=== PATIENT | female | born 1940 | race Caucasian/White ===

== ENCOUNTER 2019-05-25 05:28 | Inpatient (IN) | payer MEDICARE ==
[~2019-05-25] VITALS: Ht 165.1 cm; Wt 50.9 kg
--- NOTE | ~2019-05-25 | HEMODYNAMI ---
PATIENT:LINDA AHUJA MEDICAL RECORD: [id number] : 36 [id number] ADMISSION DATE: 05/25/19 Generatedon:05/29/201912:15 Patient name: LINDA AHUJA Patient #: [id number] SSN: [id number] : 1940 Date of study: 05/28/2019 Page: Of Hemodynamic Procedure Report Patient Data Patient Demographics Procedure consent was obtained First Name: LINDA Gender: Female Last Name: SEYMOUR : 1940 Patient #: [id number] Age: 79 year(s) Race: SSN: [id number] Additional ID: [id number] Contact details [address]: [address] [place] [address] State: [place] City: [place] Zip code: [address] Past Medical History History of disease Date Diagnosis Comments CHF Allergies: No known allergies Admission Admission Data Admission Date: 05/25/2019 Admission Time: 6:18 Admit Source: Other Room #: [id number] Height (in.): 65 BSA: 1.55 (m2) Height (cm.): 165.1 BMI: 18.64 (kg/m2) Weight (lbs.): 112 Weight (kg.): 50.8 Current Diagnosis Diagnosis Description NSTEMI Lab Results Lab Result Date: 05/28/2019 Lab Result Time: 0:00 Biochemistry Name Units Result Min Max Creatinine mg/dl 1.2 --(---*)-- 0.6 1.3 eGFR ml/min 46 *-(----)-- 90 120 AM CBC Name Units Result Min Max Hematocrit % 34.5 *-(----)-- 42 54 Hemoglobin g/dl 11 *-(----)-- 13.5 17.5 Procedure Procedure Types Cath Procedure Diagnostic Procedure C LH w/Coronaries Sedation Charges Moderate Sedation up to 45 minutes PCI Procedure Coronary Stent Coronary Stent Initial Hemochron ACT Test Procedure Description Procedure Date Procedure Date: 05/28/2019 Procedure Start Time: 13:21 Procedure End Time: 14:07 Procedure Staff Name Function Gilbert Porter RN Nurse Kendall Fletcher MD Performing Physician Amy Garcia RT Scrub Hope Haji RN Shredder Operator Procedure Data Cath Procedure Fluoroscopy Diagnostic fluoroscopy Total fluoroscopy Time: time: 14.8 min 14.8 min Diagnostic fluoroscopy Total fluoroscopy dose: 991 dose: 991 mGy mGy Contrast Material Contrast Material Type Amount (ml) Isovue 300 94 Entry Location Entry Primary Successful Side Size Upsize Upsize Entry Closure Succes sful Closure Location (Fr) 1 (Fr) 2 (Fr) Remarks Device Remarks Femoral Right 5 Fr 6 Fr 6 Fr Exoseal artery Long Short Estimated blood loss: 10 ml Diagnostic catheters Device Type Used For End Catheter Placement MULTIPACK JL 4.0 5Fr Procedure catheter MULTIPACK 3DRC 5Fr Procedure catheter DIAGNOSTIC Pigtail 5Fr Procedure catheter ([id number]) Procedure Complications No complications Procedure Medications Medication Administration Route Dosage Oxygen etCO2 Nasal cannula 2 l/min Lidocaine 2% added to field 20 Heparin Flush Bag added to field 2 bags (1000units/500ml NS) 0.9% NaCl I.V. 100 ml/hr Versed I.V. 1 mg Fentanyl I.V. 50 mcg Versed I.V. 1 mg Heparin Bolus I.V. 4000 units Integrilin (Bolus I.V. 4.5 ml 2mg/ml) Plavix P.O. 600 mg Hemodynamics Rest BSA: 1.55 (m2) HGB: 11 (g/dl) O2 Consumption: Estimated: 145.93 (ml/min) O2 Cons umption indexed: Estimated:94.15 (ml/min/m) Heart Rate: 82 (bpm) Pressure Samples Time Site Value (mmHg) Purpose Heart Use Rate(bpm) 13:28 AO 120/9(50) Snapshot 82 Snapshots Pre Cath Intra NCS Post Cath Vital Signs Time Heart Resp SPO2 etCO2 NIBP (mmHg) Rhythm Pain Sedation Rate (ipm) (%) (mmHg) Status Level (bpm) 13:13:37 83 32 99 11.1 130/66(98) NSR 0 (11) 10(A) , No pain 13:17:49 79 24 99 12.6 116/59(94) NSR 0 (11) 10(A) , No pain 13:21:54 79 20 99 13.4 113/58(93) NSR 0 (11) 9(A) , No pain 13:26:00 77 19 96 13.4 110/56(86) NSR 0 (11) 9(A) , No pain 13:30:08 80 19 95 3.7 108/48(81) NSR 0 (11) 9(A) , No pain 13:34:14 79 21 95 3.7 111/52(77) NSR 0 (11) 9(A) , No pain 13:38:24 80 22 95 7.4 95/45(67) NSR 0 (11) 9(A) , No pain 13:42:27 79 21 95 3.7 97/45(69) NSR 0 (11) 9(A) , No pain 13:46:31 81 22 95 4.4 96/49(77) NSR 0 (11) 9(A) , No pain 13:50:33 81 16 96 11.1 99/56(74) NSR 0 (11) 9(A) , No pain 13:54:36 81 23 95 1.4 110/52(82) NSR 0 (11) 9(A) , No pain 13:58:42 80 21 95 0.7 112/54(87) NSR 0 (11) 9(A) , No pain 14:02:44 82 18 98 19.3 114/66(96) NSR 0 (11) 9(A) , No pain 14:06:46 82 20 99 4.4 125/76(101) NSR 0 (11) 10(A) , No pain Medications Time Medication Route Dose Verified Delivered Reason Notes Effectiveness by by 13:12:38 Oxygen etCO2 2 Vamshi Buffie used for Nasal l/min Abdiel Porter RN procedure cannula 13:12:46 Lidocaine 2% added 20ml Vamshi Vamshi for local to vial Abdiel Meadows MD anesthetic field 13:12:52 Heparin Flush added 2 Vamshi Vamshi used for Bag to bags Abdiel Meadows MD procedure (1000units/500ml field NS) 13:13:01 0.9% NaCl I.V. 100 Vamshi Buffie Per physician ml/hr Abdiel Porter RN 13:18:36 Versed I.V. 1 mg Vamshi Buffie for sedation Abdiel Porter RN 13:18:42 Fentanyl I.V. 50 Vamshi Connieie for sedation mcg Abdiel Porter RN 13:30:48 Versed I.V. 1 mg Vamshi Buffie for sedation Abdiel Porter RN 13:33:54 Heparin Bolus I.V. 4000 Vamshi Connieie for verif ied units Abdiel Porter RN anticoagulation with dr chairez 13:35:02 Integrilin I.V. 4.5 Vamshi Connieie for waste d (Bolus 2mg/ml) ml Abdiel Porter RN antiplatelet 5.5 ml therapy of vial 14:07:26 Plavix P.O. 600 Kendall Gilbert for mg St Davsi Porter RN antiplatelet therapy Procedure Log Time Note 12:28:36 Informed consent obtained and on chart 12:29:20 ACC Patient presents with Non-STEMI CCS Anginal Class 2--Slight limitation of ordinary activity. 12:29:28 Procedure Status Urgent Heart Cath (IP). 12:29:38 Diagnostic Cath Status : Urgent 12:29:52 Gilbert Porter RN sent for patient. Start room use. 12:30:55 Time tracking: Regular hours (M-F 7:00 - 5:00) 12:31:00 Plan of Care:Hemodynamics will remain stable., Cardiac rhythm will remain stable., Comfort level will be maintained., Respiratory function will remain adequate., Patient/ family verbilizes understanding of procedure., Procedure tolerated without complication., Recovers from procedure without complications.. 12:31:27 Full Disclosure recording started 12:31:30 H&P Date Dictated: 05/28/2019 Within 30 days and on chart.. 12:31:45 Patient allergic to No known allergies 12:31:56 Is the patient allergic to Iodine/contrast media? No. 12:31:58 Was the patient premedicated? N/A 12:34:26 Admit Source: Other 12:34:38 Patient Height : 65 inches 12:34:45 Patient Weight : 112 lbs 12:34:48 Current Diagnosis : NSTEMI 12:49:07 Patient diabetic? No. 12:49:14 Patient not . Patient is over age 53. 12:49:58 Lab Result : Hemoglobin 11 g/dl 12:49:58 Lab Result : eGFR AM 46 ml/min 12:49:58 Lab Result : Creatinine 1.2 mg/dl 12:49:59 Lab Result : Hematocrit 34.5 % 12:50:07 Stress Test: no; N/A ? 12:50:12 Risk of Mortality: 9.3 12:50:16 Risk of blood transfusion: 24 12:50:20 Risk of DENA: 15.7 12:50:46 ACCPatient has been prescribed/administered the following anti-anginal medication within the last 2 weeks: None 13:00:05 Patient received from Med II to CCL 1 Alert and oriented. Tansferred to table in Supine position. 13:00:53 Warm blankets applied, and joe hugger turned on for patient comfort. 13:00:54 Correct patient and procedure confirmed by team. 13:00:56 ECG and BP/O2 sat monitors applied to patient. 13:01:20 Unable to provide pre-op teaching due to educational barrier. PT CONFUSED 13:01:26 Family in patients room. 13:01:36 Patient NPO since Midnight. 13:01:43 Is patient on blood thinner?No 13:01:47 ACC The patient was administered the following blood thiners within the last 24 hours: None 13:01:53 If diabetic: On Metformin? No 13:02:06 Previous problem with sedation/anesthesia? No ? 13:02:21 Snore? Yes 13:02:23 Sleep apnea? No 13:02:33 Deviated septum? No 13:02:34 Opens mouth fully? Yes 13:02:36 Sticks out tongue? Yes 13:02:39 Airway obstruction? No ? 13:02:50 Dentures? No ? 13:02:57 Patient pain scale 0/10 ?. 13:03:24 IV patent on arrival in right antecubital with 0.9% NaCl at [facility]. 13:12:26 Vital chart was started 13:12:38 Oxygen 2 l/min etCO2 Nasal cannula was administered by Gilbert Porter RN; used for procedure; Verbal order read back and verified. 13:12:46 Lidocaine 2% 20ml vial added to field was administered by Vamshi Meadows MD; for local anesthetic; Verbal order read back and verified. 13:12:52 Heparin Flush Bag (1000units/500ml NS) 2 bags added to field was administered by Vamshi Meadows MD; used for procedure; Verbal order read back and verified. 13:13:01 0.9% NaCl 100 ml/hr I.V. was administered by Gilbert Porter RN; Per physician; Verbal order read back and verified. 13:13:22 Use device set Femoral Dx 13:14:12 ACIST Syringe (46044) opened to sterile field. 13:14:13 Bag Decanter (2002S) opened to sterile field. 13:14:16 Medline Cath Pack ([id number]) opened to sterile field. 13:14:20 DIAGNOSTIC Multipack 5Fr catheter set ([id number]) opened to sterile field. 13:14:24 ACIST Hand Control (20178) opened to sterile field. 13:14:25 ACIST Manifold (90165) opened to sterile field. 13:14:27 SHEATH 5FR [place] ([id number]) opened to sterile field. 13:14:28 EMERALD Guide Wire (175-636) opened to sterile field. 13:14:50 Pre procedure: right dorsailis pedis pulse 1+ Palpable, but thready & weak; easily obliterated 13:14:56 Right groin area was prepped with chlora-prep and draped in sterile fashion 13:14:58 Sharps counted by scrub and verified by R.N. 13:14:58 Alarms reviewed by R. N. 13:16:15 --------ALL STOP TIME OUT------ 13:16:16 Final Timeout: patient, procedure, and site verified with staff and physician. All members of the team are in agreement. 13:16:20 Right groin site verified by team. 13:16:25 Fire Safety Assessment: A--An alcohol-based skin anteseptic being used preoperatively., C--Open oxygen or nitrous oxide is being used., D--An ESU, laser, or fiber-optic light is being used. 13:16:31 Physical assessment completed. ASA score P 3 - A patient with severe systemic disease as per Kendall Fletcher MD. 13:16:36 3a) 45-59 Moderately reduced kidney function. 13:16:40 Maximum allowable contrast dose (3.7 X eGFR X 0.75)128 ml. 13:16:44 Sedation plan: IV Moderate Sedation Medication:Versed, Fentanyl 13:18:36 Versed 1 mg I.V. was administered by Gilbert Porter RN; for sedation; Verbal order read back and verified. 13:18:42 Fentanyl 50 mcg I.V. was administered by Gilbert Porter RN; for sedation; Verbal order read back and verified. 13:20:46 Procedure started. 13:21:42 Local anesthetic to right femoral artery with Lidocaine 2% by Kendall Fletcher MD.INITIAL ACCESS ONLY 13:22:19 A 5 Fr sheath was inserted into the Right Femoral artery 13:22:31 A MULTIPACK JL 4.0 5Fr catheter was advanced over the wire and used for Procedure. 13:23:35 LCA angiography performed. 13:24:33 Catheter exchanged over wire. 13:24:48 A MULTIPACK 3DRC 5Fr catheter was advanced over the wire and used for Procedure. 13:25:29 J WIRE EXCHANGED FOR GLIDEWIRE 13:25:34 RCA angiography performed. 13:25:36 ACCDominant side:Right 13:25:55 Catheter exchanged over wire. 13:28:11 GLIDE WIRE ANGLE 260cm (RN4319) opened to sterile field. 13:28:14 INFLATOR Merit BasixCompak (HZ9261) opened to sterile field. 13:28:15 SHEATH 6FR [place] (ZBF956) opened to sterile field. 13:28:16 WHISPER 300cm guide wire ([id number]) opened to sterile field. 13:28:17 GUIDE 6FR HS I catheter (LA6HSI) opened to sterile field. 13:28:54 A DIAGNOSTIC Pigtail 5Fr catheter (183108H) was advanced over the wire and used for Procedure. 13:29:27 LV gram done using DEVINE 13:29:33 EF : 55 % 13:29:34 LV hemodynamics recorded. 13:29:38 Injector settings: Ml/sec: 5, Volume: 15, 13:29:40 Catheter removed. 13:29:45 Proceeding to intervention. 13:30:09 Pre PCI Site: [place] mRCA has 90% stenosis. 13:30:30 Sheath upsized to a 6 Fr Long. 13:30:41 SHEATH 6FR [place] (RSR01) opened to sterile field. 13:30:48 Versed 1 mg I.V. was administered by Gilbert Porter RN; for sedation; Verbal order read back and verified. 13:31:14 ACC Pre-intervention SHYAM Flow is 3. 13:31:57 6 Fr HSI guide catheter was inserted over the wire 13:33:06 WHISPER 300CM wire advanced. 13:33:42 Wire advanced across lesion. 13:33:54 Heparin Bolus 4000 units I.V. was administered by Gilbert Porter RN; for anticoagulation; verified with dr chairez Verbal order read back and verified. 13:35:02 Integrilin (Bolus 2mg/ml) 4.5 ml I.V. was administered by Gilbert Porter RN; for antiplatelet therapy; wasted 5.5 ml of vial Verbal order read back and verified. 13:40:10 The INTEGRITY RX 3.5 x 15 stent ([id number]) was advanced then removed because of failure to cross lesion 13:40:19 Stent catheter was removed intact over wire. 13:40:46 Wire removed. 13:43:01 Wire advanced across lesion. 13:43:30 Wire removed. 13:43:39 CHOICE PT Extra Support J 300cm guide wire ([id number]) opened to sterile field. 13:44:20 CHOICE PT ES 300CM wire advanced. 13:45:06 Wire advanced across lesion. 13:45:32 Inflate balloon Inflation number: 1 A EMERGE OTW 3.0 x 12 balloon ([id number]) was prepped and advanced across the Mid RCA1 , then inflated to 10 DAYDAY for 0:15 (min:sec) . 13:46:16 Inflation number: 2 The EMERGE OTW 3.0 x 12 balloon ([id number]) was reinflated across the Mid RCA1 , to 12 DAYDAY for 0:15 (min:sec) . 13:46:37 Balloon removed over the wire. 13:49:42 Inflate balloon Inflation number: 1 A EMERGE OTW 3.0 x 15 balloon ([id number]) was prepped and advanced across the Mid RCA , then inflated to 12 DAYDAY for 0:15 (min:sec) . 13:50:16 Inflation number: 2 The EMERGE OTW 3.0 x 15 balloon ([id number]) was reinflated across the Mid RCA , to 14 DAYDAY for 0:14 (min:sec) . 13:50:40 Inflation number: 3 The EMERGE OTW 3.0 x 15 balloon ([id number]) was reinflated across the Mid RCA , to 14 DAYDAY for 0:14 (min:sec) . 13:50:55 Balloon removed over the wire. 13:54:05 WHISPER 300 CM wire advanced. 13:54:20 WHISPER WIRE ADVANCED TO USE FOR RICARDO WIRE 13:56:30 WHISPER WIRE REMOVED 13:57:31 Inflation number: 4 The stent balloon was then re-inflated across the Mid RCA to 14 DAYDAY for 0:14 (min:sec) . 13:57:50 Stent catheter was removed intact over wire. 13:57:51 Wire removed. 13:57:53 Guide catheter removed. 13:59:28 Sheath upsized to a 6 Fr Short. 13:59:55 Sheath removed intact; hemostasis achieved with Exoseal to the Right Femoral artery. 14:00:14 Procedure ended.(Physican Out) 14:02:11 Fluoroscopy time 14.80 minutes. 14:02:15 Fluoroscopy dose: 991 mGy 14:02:15 Flurop Dose total: 991 14:02:18 Dose Area Product 57785 mGy/cm. 14:02:24 Contrast amount:Isovue 300 94ml. 14:02:27 Maximum allowable dose exceeded? No. 14:02:31 Sharps counted by scrub and verified by R.N. 14:02:34 Insertion/operative site no bleeding no hematoma. 14:02:38 Post-op/insertion site Right Femoral artery dressed using a 4 x 4 and Tegaderm. 14:02:43 Post right femoral artery:stable, soft, clean and dry 14:02:53 Post Procedure Pulses reassessed and unchanged 14:02:56 Post procedure: right dorsailis pedis pulse 1+ Palpable, but thready & weak; easily obliterated. 14:03:01 Post-procedure physical assessment completed. ASA score P 2 - A patient with mild systemic disease as per Kendall Fletcher MD. 14:03:07 Post procedure rhythm: unchanged. 14:03:10 Estimated blood loss: 10 ml 14:03:21 Post procedure instruction explained to patient.Patient verbalizes understanding. 14:03:25 Patient needs reinforcement of post procedure teaching. 14:05:35 Procedure type changed to Cath procedure, Diagnostic procedure, LHC, LHC w/Coronaries, Sedation Charges, Moderate Sedation up to 45 minutes, PCI procedure, Coronary Stent, Coronary Stent Initial, Hemochron ACT Test 14:06:47 Procedure and supply charges have been captured, reviewed, submitted and are correct. 14:06:52 Procedure Complication : No complications 14:06:56 [facility] Findings: MVD- PCI performed (see procedure note) 14:06:58 See physician's report for complete and final results. 14:06:58 Operative report dictated upon procedure completion. 14:07:08 Report given to Pre/Post Procedure Room. 14:07:12 Patient transfered to Pre/Post Procedure Room with Bed. 14:07:19 Full Disclosure recording stopped 14:07:19 Procedure ended. 14:07:26 Plavix 600 mg P.O. was administered by Gilbert Porter RN; for antiplatelet therapy; Verbal order read back and verified. 14:07:41 ACC-PCI Only Patient was given prescriptions, or instructed by Kendall Fletcher MD to start/continue the following medications upon discharge: Plavix 14:07:43 Vital chart was stopped 14:07:47 End room use (Document Last) 14:08:10 ACT drawn and resulted at 232 seconds. (normal therapeutic range 180-240 seconds). 12:14:24 LATE ENTRY: 13:57:31 INTEGRITY RX 3.5X15 STENT DEPLOYED AT 14 DAYDAY TO MID RCA. Intervention Summary Intervention Notes Time ActionType Lesion and Equipment Action# Pressure Duration Attributes Used 13:40:10 Discard INTEGRITY RX Stent 3.5 x 15 stent ([id number]) 13:45:32 Inflate Mid RCA1 EMERGE OTW 1 10 00:15 balloon 3.0 x 12 balloon ([id number]) 13:46:16 Reinflate Mid RCA1 EMERGE OTW 2 12 00:15 balloon 3.0 x 12 balloon ([id number]) 13:49:42 Inflate Mid RCA EMERGE OTW 1 12 00:15 balloon 3.0 x 15 balloon ([id number]) 13:50:16 Reinflate Mid RCA EMERGE OTW 2 14 00:14 balloon 3.0 x 15 balloon ([id number]) 13:50:40 Reinflate Mid RCA EMERGE OTW 3 14 00:14 balloon 3.0 x 15 balloon ([id number]) 13:57:31 Reinflate Mid RCA INTEGRITY RX 4 14 00:14 stent 3.5 x 15 balloon stent ([id number]) Device Usage Item Name Manufacture Quantity Catalog Number Hospital Part Current Min imal Lot# / Charge Number Stock Stock Serial# Code ACIST Acist 1 52431 519549 108937 033666 20 Syringe Medical (86216) Systems Inc Bag Decanter Microtek 1 2001S 654576 39319 420667 5 () Medical Inc. Medline Cath Medline 1 [id number] 172239 48401 686032 5 Pack ([id number]) DIAGNOSTIC Cardinal 1 NM6111 366584 89333 884325 30 Multipack Health 5Fr catheter set (WB8220) ACIST Hand Acist 1 45091 674618 322989 831033 5 Control Medical (08788) Systems Inc ACIST Acist 1 27747 900360 737086 279418 5 Manifold Medical (40932) Systems Inc SHEATH 5FR Terumo 1 CYF159 489030 905728 305109 5 [place] (LDN155) EMERALD Cardinal 1 502-455 855327 670241 340505 5 Guide Wire Health (502-455) MULTIPACK JL Cardinal 1 728409 5 4.0 5Fr Health catheter MULTIPACK Cardinal 1 018805 5 3DRC 5Fr Health catheter GLIDE WIRE Terumo 1 AA5094 315361 696715 466988 5 ANGLE 260cm (YV3965) INFLATOR [facility] 1 JT8632 868545 628706 585351 15 [facility] BasixCompak (MB0398) SHEATH 6FR Terumo 1 SOX933 641263 866321 917905 40 [place] (SQI959) WHISPER Brothers 1 [id number] 103036 802289 502897 5 300cm guide Vascular wire ([id number]) GUIDE 6FR HS Medtronic 1 LA6HSI 113289 64401 256853 1 I catheter (LA6HSI) DIAGNOSTIC Cardinal 1 [id number] 700266 521575 523699 5 Pigtail 5Fr Health catheter (834343V) SHEATH 6FR Terumo 1 RSR01 406919 29248 284187 5 Destination (RSR01) INTEGRITY RX Medtronic 1 [id number] 215637 067923 522493 5 [id number] 3.5 x 15 stent ([id number]) CHOICE PT [place] 1 [id number] 904355 979620 429871 5 Extra Scientific Support J 300cm guide wire ([id number]) EMERGE OTW [place] 1 [id number] 647254 075260 784844 5 [id number] 3.0 x 12 Scientific balloon ([id number]) EMERGE OTW [place] 1 [id number] 825662 151095 336882 5 [id number] 3.0 x 15 Scientific balloon ([id number]) Signature Audit Sentinel Stage Time Signature Unsigned Intra-Procedure 05/28/2019 Hope Haji 2:09:14 PM RN Intra-Procedure 05/28/2019 Kendall Jenkins 2:11:43 PM Davis PAGE Intra-Procedure 05/28/2019 Kendall Mar RN 2:12:06 PM Davis PAGE 05/29/2019 12:13:32 PM Intra-Procedure 05/29/2019 Hope Haji 12:15:00 PM RN Intra-Procedure 05/29/2019 Kendall Jenkins 12:15:20 PM Davis PAGE Signatures Nurse : Gilbert Porter RN Signature : Date : Time : Performing Physician : Signature : Kendall Fletcher MD Date : Time : [place] [address] [place] [address]
[2019-05-25] MEDS ORDERED: ZESTORETIC 20-1 EACH PO (05:38)
[2019-05-25] MEDS ORDERED: TENORMIN100 MG PO (05:38)
[2019-05-25] MEDS ORDERED: NORVASC10 MG PO (05:39)
[2019-05-25] MEDS ORDERED: TAPAZOLE 5 MG TA5 MG PO (05:39)
--- NOTE | 2019-05-25 06:01 | NUR ---
PT AMBULATED TO RESTROOM INDEPENDENTLY.
--- NOTE | 2019-05-25 07:24 | NUR ---
RECIEVED CARE OF PT. DENIES NEEDS AT THIS TIME
[2019-05-25 11:38] VITALS: BP 167/89
[2019-05-25 12:22] VITALS: BP 167/89; Ht 165.1 cm; Wt 50.9 kg
--- NOTE | 2019-05-25 12:28 | NUR ---
ASSESSMENT PER FLOW SHEET. PT IS WITHOUT DISTRESS. ORIENTATION TO ROOM.FALL PREVENTION INITIATED WITH VINCE MAT.DOOR OPEN. MONITOR FOR NEEDS.
[2019-05-25 12:56] VITALS: BP 167/89
[2019-05-25 17:43] VITALS: BP 166/87
--- NOTE | 2019-05-25 18:33 | NUR ---
PT REMAINS WITHOUT DISTRESS.FALL PREVENTION IN PLACE. WITHOUT CHANGE.CONT PLAN OF CARE
--- NOTE | 2019-05-25 18:54 | MORECARE ---
CASE MANAGEMENT DISCHARGE SUMMARY PATIENT: LINDA PERSAUD UNIT: [id number] ADM DATE: 05/25/19 AGE: 79 : 38 SEX: F ROOM/BED: D.2212 AUTHOR: ABHISHEK,DOC PHYSICIAN: REFERRING PHYSICIAN: CARRI HUANG MD DATE OF SERVICE: 05/25/19 Discharge Plan Patient Name: LINDA PERSAUD Facility: [facility]:[place] : 1940 Planned Disposition: Home Anticipated Discharge Date: 05/28/19 Discharge Date: Expected LOS: 3 Initial Reviewer: [email or web address] Initial Review Date: 05/25/2019 Generated: 05/25/19 7:53 pm Comments DCP- Discharge Planning Updated by [email or web address]: Minda Alvarenga on 05/25/19 5:[address] DC PLAN: Return home with her independently. ANTICIPATED DC NEEDS: denied known dc needs at time of assessment in the ER. CM met with patient to complete initial dc planning assessment. CM educated patient on the CM role and verbal consent given by patient to complete assessment. CM verified patient's address, phone number, and emergency contact phone numbers. Patient lives at home with her . She reports she is independent in her care at home. At discharge patient plans to return home independently and feels this is a safe discharge. CM discussed availability of home health, rehab services, and medical equipment. Patient denied known discharge needs at this time. Transportation provider at discharge will be her . CM will continue to follow and will assist as needed with dc plans/needs. Minda Alvarenga RN, [facility] DCPIA - Discharge Planning Initial Assessment Updated by [email or web address]: Minda Alvarenga on 05/25/19 6:50 pm * Is the patient Alert and Oriented? Yes * How many steps to enter\exit or inside your home? one * PCP Dr. Hodges in [place] * Pharmacy [facility] - [place] * Preadmission Environment Home with Family * ADLs Independent * List name and contact numbers for known caregivers / representatives who currently or will assist patient after discharge: Zackary Persaud - spouse - [phone] * Verbal permission to speak to the caregivers and representatives has been obtained from the patient. Yes * Additional services required to return to the preadmission environment? No * Can the patient safely return to the preadmission environment? Yes * Has this patient been hospitalized within the prior 30 days at any hospital? No Patient Name: LINDA PERSAUD Page [id number] at 1854 All edits/amendments must be made on the electronic document DICTATION DATE: 05/25/191852 CONCRETE STONE FINISHER: SIN 05/25/191852 RPT#: [id number] DC DATE: STATUS: ADM IN [facility] [address] [place] [address] END OF REPORT
[2019-05-25 20:00] VITALS: BP 163/85
[2019-05-26 04:00] VITALS: BP 117/81
[2019-05-26 06:31] LABS: BASOPHILS 0.3 % (0-2); EOSINOPHILS 0.1 % (0-7); HEMATOCRIT 38.6 % (36.0-48.0); HEMOGLOBIN 12.2 g/dL (12-16); IMMATURE GRANULOCYTES 0.3 % (0-5); LYMPHOCYTES 28.1 % (15-50); MCH 28.1 pg (26.0-34.0); MCHC 31.6 g/dL (31.0-37.0); MCV 88.9 fL (80.0-100.0); MEAN PLATELET VOLUME 10.9 fL (7.4-10.4); MONOCYTES 7.8 % (2-11); NEUTROPHILS 63.4 % (40-80); PLATELET COUNT 250 10x3/uL (130-400); RBC 4.34 10x6/uL (4.00-5.40); RDW 14.1 % (11.5-14.5); WBC 7.9 10x3/uL (4.8-10.8)
[2019-05-26 07:08] LABS: APTT 22.1 SECONDS (22.8-39.4); INR 1.12 (0.85-1.17); PROTIME 14.4 SECONDS (11.6-15.0)
[2019-05-26 07:11] LABS: ALBUMIN 3.4 g/dL (3.4-5.0); ALKALINE PHOSPHATASE 77 U/L (30-120); ALT (SGPT) 47 U/L (10-68); BILIRUBIN - TOTAL 0.49 mg/dL (0.2-1.3); CALC OSMOLALITY 294 mosm/kg (275-300); CALCIUM 8.8 mg/dL (8.5-10.1); CARBON DIOXIDE 33.6 mmol/L (21.0-32.0); CHLORIDE - SERUM 105 mmol/L (98-107); CKMB 2.2 U/L (0.0-3.6); CREATINE KINASE 108 UL (21-215); CREATININE - SERUM 1.1 mg/dL (0.6-1.3); GLUCOSE 90 mg/dL (74-106); MAGNESIUM - SERUM 1.7 mg/dL (1.8-2.4); PHOSPHOROUS 3.7 mg/dL (2.5-4.9); PRO BNP 25172 pg/mL (0-450); PROTEIN - SERUM 7.1 g/dL (6.4-8.2); SODIUM 144 mmol/L (136-145); UREA NITROGEN 35 mg/dL (7-18); eGFR NON AFRICAN AMERICAN 50 mL/min (90-120)
[2019-05-26 07:15] LABS: TROPONIN-I 0.087 ng/mL (0.000-0.060)
--- NOTE | 2019-05-26 08:11 | NUR ---
AWAKE, ALERT, TALKING TO HER SON'S . ON TELE, SR 88 THIS AM PER MONIOTR TECH. DENIES ANY PAIN OR ANY NEED AT THE PRESENT TIME.
[2019-05-26 08:37] LABS: APPEARANCE CLEAR (CLEAR); BILIRUBIN NEGATIVE (NEGATIVE); COLOR STRAW (YELLOW); GLUCOSE NEGATIVE (NEGATIVE); KETONE NEGATIVE (NEGATIVE); NITRITE NEGATIVE (NEGATIVE); PROTEIN NEGATIVE (NEGATIVE); SPECIFIC GRAVITY 1.005 (1.005-1.020); UROBILINOGEN NORMAL (NORMAL)
[2019-05-26 08:47] VITALS: BP 149/72
[2019-05-26 12:10] VITALS: BP 123/68
[2019-05-26 16:44] VITALS: BP 139/74
[2019-05-26 20:00] VITALS: BP 131/82
[2019-05-27] VITALS: BP 137/70
[2019-05-27 04:00] VITALS: BP 140/80
[2019-05-27 05:32] LABS: BASOPHILS 0.3 % (0-2); EOSINOPHILS 0.9 % (0-7); HEMOGLOBIN 11.5 g/dL (12-16); MCH 27.9 pg (26.0-34.0); MCHC 31.9 g/dL (31.0-37.0); MCV 87.4 fL (80.0-100.0); MEAN PLATELET VOLUME 10.4 fL (7.4-10.4); NEUTROPHILS 60.8 % (40-80); PLATELET COUNT 282 10x3/uL (130-400); RBC 4.12 10x6/uL (4.00-5.40); RDW 14.3 % (11.5-14.5); WBC 6.3 10x3/uL (4.8-10.8)
[2019-05-27 05:43] LABS: ANION GAP 10.4 mmol/L (8-16); CALCIUM 8.7 mg/dL (8.5-10.1); CARBON DIOXIDE 30.7 mmol/L (21.0-32.0); CREATININE - SERUM 1.1 mg/dL (0.6-1.3); MAGNESIUM - SERUM 1.7 mg/dL (1.8-2.4); PHOSPHOROUS 3.6 mg/dL (2.5-4.9); POTASSIUM - SERUM 4.1 mmol/L (3.5-5.1)
[2019-05-27 08:12] VITALS: BP 158/76
--- NOTE | 2019-05-27 08:16 | NUR ---
SHE IS SETTING UP IN BED TALKING WITH HER FAMILY. NO ISSUES, SR ON THE MONITOR.
[2019-05-27 12:02] VITALS: BP 104/44
[2019-05-27 16:19] VITALS: BP 134/69
[2019-05-27 20:00] VITALS: BP 146/65
[2019-05-28] VITALS: BP 115/74
[2019-05-28 04:00] VITALS: BP 126/62
[2019-05-28 04:18] LABS: BASOPHILS 0.3 % (0-2); EOSINOPHILS 0.6 % (0-7); HEMATOCRIT 34.5 % (36.0-48.0); IMMATURE GRANULOCYTES 0.2 % (0-5); LYMPHOCYTES 19.3 % (15-50); MCH 27.7 pg (26.0-34.0); MCHC 31.9 g/dL (31.0-37.0); MCV 86.9 fL (80.0-100.0); MEAN PLATELET VOLUME 9.8 fL (7.4-10.4); NEUTROPHILS 69.6 % (40-80); PLATELET COUNT 273 10x3/uL (130-400); RBC 3.97 10x6/uL (4.00-5.40); RDW 14.3 % (11.5-14.5); WBC 6.5 10x3/uL (4.8-10.8)
[2019-05-28 04:34] LABS: ANION GAP 11.2 mmol/L (8-16); CALCIUM 8.7 mg/dL (8.5-10.1); CARBON DIOXIDE 28.2 mmol/L (21.0-32.0); CREATININE - SERUM 1.2 mg/dL (0.6-1.3); MAGNESIUM - SERUM 1.9 mg/dL (1.8-2.4); PHOSPHOROUS 3.6 mg/dL (2.5-4.9); POTASSIUM - SERUM 4.4 mmol/L (3.5-5.1)
[2019-05-28 08:23] VITALS: BP 123/63
--- NOTE | 2019-05-28 11:22 | NUR ---
HIGH RISK / IMPAIRED SKIN INTEGRITY -TURN/REPOSITION Q 2 HOURS (HOURLY REPOSITIONING IF UP IN CHAIR) -FLOAT HEELS OFF MATTRESS/PILLOWS -DAILY AND NEEDED PERSONAL CARE, USING CALMOSEPTINE CREAM IF REDNESS IS NOTED DUE TO INCONTINENCE/MOISTURE -SKIN ASSESSMENT Q SHIFT -CONSULT WOUND CARE IF NON-BLANCHABLE REDNESS OVER BONY PROMINENCES IS NOTED. COVER AREA WITH MEPILEX FOR PROTECTION AND REPOSITION PATIENT
[2019-05-28 12:18] VITALS: BP 140/63
--- NOTE | 2019-05-28 12:51 | NUR ---
PT OFF FLOOR TO HEART CATH AT THIS TIME VIA BED. WAS INSTABLE CONDITION UPON DEPARTURE. FAMILY REMAIN IN ROOM.
[2019-05-28 14:09] LABS: CHOL - HDL RATIO 3.6 ratio (2.3-4.1); LDL-HDL RATIO 2.2 ratio (1.5-3.5)
--- NOTE | 2019-05-28 14:20 | NUR ---
REC TO ROOM FROM CUSTOMER OPERATIONS INTERN VIA BED. R GROIN TEGADERM AND 4X4 CDI, GROIN SOFT, NO S/S BLEEDING OR HEMATOMA. INSTRUCTED TO KEEP HEAD ON PILLOW AND R LE STRAIGHT AND STILL. HR SR 75, BP 133/58, RESP 20, SAT 99% ON 2LNC
--- NOTE | 2019-05-28 15:15 | NUR ---
R GROIN CDI, SOFT. NO S/S BLEEDING OR HEMATOMA. BP 114/55, NSR 72, RR 21, SAT 97% ON 2LNC
--- NOTE | 2019-05-28 15:30 | NUR ---
R GROIN CDI, SOFT. PPP. NO S/S BLEEDING OR HEMATOMA. BP 124/62, NSR 72. ROUSES TO VERBAL AND TACTILE STIMULUS. DENIES NEEDS.
--- NOTE | 2019-05-28 15:51 | NUR ---
R GROIN SOFT, NO S/S BLEEDING OR HEMATOMA. PPP. BP 132/63, HR NSR 72, SAT 99% ON 2LNC.
--- NOTE | 2019-05-28 16:00 | NUR ---
R GROIN CDI, SOFT. NO S/S BLEEDING OR HEMATOMA. PPP. BP 126/63, NSR 74, RR 18, SAT 100% ON 2LNC.
--- NOTE | 2019-05-28 16:20 | NUR ---
TRANSFERRED BACK TO 2211 AFTER TELEPHONE REPORT GIVEN TO NURSE DELILAH. FAMILY IN ROOM TO RECEIVE PT. R GROIN REMAINS SOFT, CDI, NO S/S BLEEDING OR HEMATOMA. EXPL TO PT, SONS AND IN 30 MIN SHE CAN RAISE HOB AND MOVE RLE SOME. BEDREST TIL 1730. ALL VERBALIZE UNDERSTANDING. CHART LEFT WITH Tony FERNANDEZ NURSE, AT NURSES STATION WITH VERBAL ORDER TO RESUME PREPROCEDURE DIET PER DR MICHELE.
--- NOTE | 2019-05-28 16:38 | EC ---
PATIENT:LINDA AHUJA DATE OF SERVICE: 05/25/19 SEX: F MEDICAL RECORD: [id number] DATE OF : 36 LOCATION:D[facility] AGE OF PATIENT: 79 ADMISSION DATE: 05/25/19 REFERRING PHYSICIAN: INTERPRETING PHYSICIAN: MEHRDAD KO MD ECHOCARDIOGRAM REPORT ECHO CHARGES 4 ECHO COMPLETE Date: 05/25/19 CLINICAL DIAGNOSIS: CHF ECHOCARDIOGRAPHIC MEASUREMENTS (adult normal given) AC root (d.<3.7cm) 2.8 cm LV Septum d (<1.2 cm> 1.0 cm Valve Excursion 1.9 cm LV Septum (systole) 1.2 cm Left Atria (s.<4.0cm> 3.2 cm LVPW d(<1.2cm) 1.2 cm RV (d.<2.3cm) 3.1 cm LVPW (sytole) 1.3 cm LV diastole(<5.6CM) cm MV E-F(>70mm/sec) cm LV systole cm LVOT Diameter 1.5 cm MV exc.(>10mm) cm Est.ejection fraction (50-75%) % DOPPLER: LVIT cm/sec A 90 cm/sec E 56 cm/sec LA cm/sec RVSP 68.6 mmHg LVOT 68 cm/sec AOP1/2T m/s Asc. Ao 96 cm/sec RVOT 50 cm/sec RA cm/sec PA 55 cm/sec AV Gradient Peak 3.7 mmHg AV Mean 2.3 mmHg AV Area 1.1 cm MV Gradient Peak 3.2 mmHg MV Mean 1.7 mmHg MV Area cm COMMENTS: Sheet Writer: Kris [facility] A Class Lineman: 1 Dr. Ko TAPE# PACS Pericardial Effusion N DATE OF SERVICE: Echocardiogram FINDINGS: 1. Left ventricular chamber size is within normal limits. Left ventricular systolic function is normal at 50% to 55%. 2. Left atrium is within normal limits. Right atrium and right ventricle chamber sizes are mildly dilated. 3. Valvular structures have normal structure and motion. ECHOCARDIOGRAM REPORT [id number] LINDA AHUJA 4. Doppler interrogation reveals severe mitral regurgitation, severe tricuspid regurgitation, no other valvular insufficiency or stenosis. Pulmonary systolic pressure is elevated estimated at 70 mmHg. 5. No evidence of pericardial effusion or left ventricular thrombus. TRANSINT:[id number] Voice Confirmation ID: [id number] DOCUMENT ID: [id number] MEHRDAD KO MD at 1638 CC: [id number] DICTATION DATE: 05/25/19 1509 MACHINE SET UP OPERATOR: 05/25/191956 ADM IN [facility] [address] [id number]
--- NOTE | 2019-05-28 19:38 | NUR ---
PT IS RESTING IN BED WITH EYES CLOSED. RESPIRATIONS ARE EVEN AND UNLABORED. PT IS EASILY AROUSED WITH VERBAL STIMULATION. PT IS AAO X 4 UPON AROUSAL. DRESSING TO RIGHT GROIN IN PLACE AND CDI. PT DENIES PRESENCE OF NUMBNESS/TINGLING/DYSPNEA AT THIS TIME. PT DENIES PRESENCE OF PAIN/N/V AT THIS TIME. PIV TO RIGHT FA INFUSING WITHOUT DIFFICULTY. BED IS IN THE LOWEST POSITION CALL LIGT AND BEDSIDE TABLE ARE WITHINR EACH. SIDE RAILS X 2.
[2019-05-28 21:39] VITALS: BP 137/59
--- NOTE | 2019-05-29 00:15 | NUR ---
ASSISTED PT UP TO BATHROOM AND BACK TO BED. BED ALARM ON. DENIES FURTHER NEEDS. WILL CTM
[2019-05-29 01:26] VITALS: BP 119/57
[2019-05-29 05:30] VITALS: BP 122/68
[2019-05-29 05:32] LABS: ANION GAP 12.8 mmol/L (8-16); CARBON DIOXIDE 26.5 mmol/L (21.0-32.0); MAGNESIUM - SERUM 1.7 mg/dL (1.8-2.4); PHOSPHOROUS 3.1 mg/dL (2.5-4.9); POTASSIUM - SERUM 4.3 mmol/L (3.5-5.1)
[2019-05-29 05:46] LABS: BASOPHILS 0.3 % (0-2); EOSINOPHILS 0.6 % (0-7); HEMOGLOBIN 10.1 g/dL (12-16); IMMATURE GRANULOCYTES 0.1 % (0-5); LYMPHOCYTES 17.9 % (15-50); MCH 27.6 pg (26.0-34.0); MCHC 31.6 g/dL (31.0-37.0); MCV 87.4 fL (80.0-100.0); MEAN PLATELET VOLUME 10.1 fL (7.4-10.4); MONOCYTES 8.3 % (2-11); NEUTROPHILS 72.8 % (40-80); PLATELET COUNT 263 10x3/uL (130-400); RBC 3.66 10x6/uL (4.00-5.40); RDW 14.4 % (11.5-14.5)
--- NOTE | 2019-05-29 07:15 | NUR ---
PT SITTING UP IN BED. RESP EVEN AND UNLABORED AT THIS TIME. DENIES PAIN AT THIS TIME. PT REQUEST ASSIST TO BATHROOM. PT AMBULATES WITH STANDBY ASSIST TO BATHROOM AND BACK TO BED. PT GAMALIEL WELL. SALINE LOC TO RIGHT FOREARM. SITE WITHOUT REDNESS OR EDEMA. DRESSING TO RIGHT GROIN C/D/I. DENIES FURTHER NEEDS AT THIS TIME. CL WITHIN REACH. ENCOURAGED TO CALL WITH NEEDS. CONTINUE POC
[2019-05-29 09:28] VITALS: BP 134/65
[2019-05-29] MEDS ORDERED: TAPAZOLE 5 MG TA5 MG PO (11:15)
[2019-05-29] MEDS ORDERED: BAYER CHEWABLE81 MG PO (11:16)
--- NOTE | 2019-05-29 12:26 | MORECARE ---
CASE MANAGEMENT DISCHARGE SUMMARY PATIENT: LINDA PERSAUD UNIT: [id number] ADM DATE: 05/25/19 AGE: 79 : 38 SEX: F ROOM/BED: D.2212 AUTHOR: ABHISHEK,DOC PHYSICIAN: REFERRING PHYSICIAN: CARRI HUANG MD DATE OF SERVICE: 05/29/19 Discharge Plan Patient Name: LINDA PERSAUD Facility: [facility]:[place] : 1940 Planned Disposition: Home Anticipated Discharge Date: 05/28/19 Discharge Date: Expected LOS: 3 Initial Reviewer: [email or web address] Initial Review Date: 05/25/2019 Generated: 05/29/19 1:26 pm Comments DCP- Discharge Planning Updated by [email or web address]: Jane Scott on 05/29/19 11:[address] PATIENT WILL BE DISCHARGING HOME TODAY, IMM SERVED AND EXPLAINED. SHE WILL BE GOING TO HER SON'S HOME WITH HER SPOUSE AND THEN HE WILL BE TAKING THEM BACK TO THEIR HOME TOMORROW. THEY HAVE WORKED OUT A PLAN FOR THEM TO DAY WITH ONE CHILD OR ANOTHER. PATIENT DENIES ANY OTHER NEEDS. IMM SERVED AND EXPLAINED. CM TO FOLLOW AND ASSIST WITH DC PLANNING NEEDED DCP- Discharge Planning Updated by [email or web address]: Minda Alvarenga on 05/25/19 5:[address] DC PLAN: Return home with her independently. ANTICIPATED DC NEEDS: denied known dc needs at time of assessment in the ER. CM met with patient to complete initial dc planning assessment. CM educated patient on the CM role and verbal consent given by patient to complete assessment. CM verified patient's address, phone number, and emergency contact phone numbers. Patient lives at home with her . She reports she is independent in her care at home. At discharge patient plans to return home independently and feels this is a safe discharge. CM discussed availability of home health, rehab services, and medical equipment. Patient denied known discharge needs at this time. Transportation provider at discharge will be her . CM will continue to follow and will assist as needed with dc plans/needs. Minda Alvarenga RN, [facility] DCPIA - Discharge Planning Initial Assessment Updated by [email or web address]: Minda Alvarenga on 05/25/19 6:50 pm * Is the patient Alert and Oriented? Yes * How many steps to enter\exit or inside your home? one * PCP Dr. Hodges in [place] * Pharmacy [facility] - [place] * Preadmission Environment Home with Family * ADLs Independent * List name and contact numbers for known caregivers / representatives who currently or will assist patient after discharge: Zackary Persaud - spouse - [phone] * Verbal permission to speak to the caregivers and representatives has been obtained from the patient. Yes * Additional services required to return to the preadmission environment? No * Can the patient safely return to the preadmission environment? Yes * Has this patient been hospitalized within the prior 30 days at any hospital? No Coverage Notice Reviewer: [email or web address] Mayra Scott Notice Issued Date-Time: 05/29/2019 12:10 Notice Type: IM Discharge Notice Notice Delivered To: Patient Relationship to Patient: Manager Installation Name: Delivery Method: HAND - Hand Delivered Micki Days: Prior Verbal Notification: Recipient Understood Notice: Yes Recipient Signature: Yes Med Rec Note Co-signed by Attending: Coverage Notice Comment: Last DP export: 05/25/19 5:54 p Patient Name: LINDA PERSAUD Page [id number] at 1226 All edits/amendments must be made on the electronic document DICTATION DATE: 05/29/191225 PARAPROFESSIONAL EDUCATION ASSISTANT: SIN 05/29/19 1226 RPT#: [id number] DC DATE: STATUS: ADM IN [facility] [address] [place] [address] END OF REPORT
[2019-05-29 12:45] VITALS: BP 129/62
[2019-05-29] MEDS ORDERED: PLAVIX75 MG PO (12:56)
--- NOTE | 2019-05-29 13:43 | NUR ---
PT PROVIDED DISCHARGE PAPERWORK WITH PRESCRIPTIONS, STENT CARD AND LITERATURE REGARDING POST OP HEART CATH. PT VOICES UNDERSTANDING TO EXERCISE SHOWERING AND DIET INSTRUCTIONS. DISCUSSED FOLLOW UP APPOINTMENTS WITH DR. GRUBER AND DR BERMUDEZ. IV DISCONTINUED FROM RIGHT UPPER ARM CATH INTACT. PRESSURE DRESSING PLACED. PT DENIES ANY CONCERNS OR QUESTIONS AT THIS TIME. PT TAKEN OUT VIA W/C WITH ALL PERSONAL POSESSIONS.
--- NOTE | 2019-05-29 14:27 | MORECARE ---
CASE MANAGEMENT DISCHARGE SUMMARY PATIENT: LINDA PERSAUD UNIT: [id number] ADM DATE: 05/25/19 AGE: 79 : 38 SEX: F ROOM/BED: D.2212 AUTHOR: ABHISHEK,DOC PHYSICIAN: REFERRING PHYSICIAN: CARRI HUANG MD DATE OF SERVICE: 05/29/19 Discharge Plan Patient Name: LINDA PERSAUD Facility: [facility]:[place] : 1940 Planned Disposition: Home Anticipated Discharge Date: 05/28/19 Discharge Date: 05/29/2019 Expected LOS: 3 Initial Reviewer: [email or web address] Initial Review Date: 05/25/2019 Generated: 05/29/19 3:26 pm Comments DCP- Discharge Planning Updated by [email or web address]: Jane Scott on 05/29/19 11:[address] PATIENT WILL BE DISCHARGING HOME TODAY, IMM SERVED AND EXPLAINED. SHE WILL BE GOING TO HER SON'S HOME WITH HER SPOUSE AND THEN HE WILL BE TAKING THEM BACK TO THEIR HOME TOMORROW. THEY HAVE WORKED OUT A PLAN FOR THEM TO DAY WITH ONE CHILD OR ANOTHER. PATIENT DENIES ANY OTHER NEEDS. IMM SERVED AND EXPLAINED. CM TO FOLLOW AND ASSIST WITH DC PLANNING NEEDED DCP- Discharge Planning Updated by [email or web address]: Minda Alvarenga on 05/25/19 5:[address] DC PLAN: Return home with her independently. ANTICIPATED DC NEEDS: denied known dc needs at time of assessment in the ER. CM met with patient to complete initial dc planning assessment. CM educated patient on the CM role and verbal consent given by patient to complete assessment. CM verified patient's address, phone number, and emergency contact phone numbers. Patient lives at home with her . She reports she is independent in her care at home. At discharge patient plans to return home independently and feels this is a safe discharge. CM discussed availability of home health, rehab services, and medical equipment. Patient denied known discharge needs at this time. Transportation provider at discharge will be her . CM will continue to follow and will assist as needed with dc plans/needs. Minda Alvarenga RN, [facility] DCPIA - Discharge Planning Initial Assessment Updated by [id number]: Minda Alvarenga on 05/25/19 6:50 pm * Is the patient Alert and Oriented? Yes * How many steps to enter\exit or inside your home? one * PCP Dr. Hodges in [place] * Pharmacy [facility] - [place] * Preadmission Environment Home with Family * ADLs Independent * List name and contact numbers for known caregivers / representatives who currently or will assist patient after discharge: Zackary Persaud - [facility] - [phone] * Verbal permission to speak to the caregivers and representatives has been obtained from the patient. Yes * Additional services required to return to the preadmission environment? No * Can the patient safely return to the preadmission environment? Yes * Has this patient been hospitalized within the prior 30 days at any hospital? No Coverage Notice Reviewer: [email or web address] Mayra Scott Notice Issued Date-Time: 05/29/2019 12:10 Notice Type: IM Discharge Notice Notice Delivered To: Patient Relationship to Patient: Film Maker Name: Delivery Method: HAND - Hand Delivered Micki Days: Prior Verbal Notification: Recipient Understood Notice: Yes Recipient Signature: Yes Med Rec Note Co-signed by Attending: Coverage Notice Comment: Last DP export: 05/29/19 11:26 a Patient Name: LINDA PERSAUD Page [phone] at 1427 All edits/amendments must be made on the electronic document DICTATION DATE: 05/29/191425 FIBER OPTIC ASSEMBLY WORKER: SIN 05/29/191425 RPT#: [id number] DC DATE:05/29/19 STATUS: DIS IN [facility] [address] [place] [address] END OF REPORT
--- NOTE | 2019-05-29 16:21 | OP ---
PATIENT NAME: LINDA AHUJA MEDICAL RECORD: [id number] :36 LOCATION:D.[facility] ADMISSION DATE:05/25/19 SURGEON: ANGELITA FERGUSON MD DATE OF OPERATION: 05/28/2019 PROCEDURE: Left heart catheterization, selective coronary angiography, right femoral artery approach. CATHETERS: A 5-Zambian sheath, 5/4 left and right Ashutosh, 5/4 pig. The procedure was well tolerated. We proceeded immediately to PTCA stenting of the right coronary. FINDINGS: Left ventriculography in 30-degree DEVINE view: Normal wall motion, normal systolic function. CORONARY ANATOMY: LEFT MAIN: Left main is free of disease. LAD: Had previous stenting is widely patent throughout its course with no evidence of restenosis and no evidence of progression of disease. CIRCUMFLEX: Medium size circumflex free of disease. RIGHT CORONARY ARTERY: Has a mid portion stenosis about 80%. PLAN: Intervention of the right coronary momentarily. DESCRIPTION OF PROCEDURE: A 5-Zambian sheath was exchanged for a long 6-Zambian sheath. A hockey stick guide catheter provided good guide catheter support followed by 300 Whisper wire, the lesion was highly calcified. Therefore, we used a 3.0 x 15 balloon and taken distal to the lesion and using the balloon as an exchange catheter changed out to PT X4 wire. we inflated up and down the lesion up to 14 atmospheres pre-deployment. Stent deployed was a 3.5 x 15 mm Integrity nondrug-eluting stent up to 14 atmospheres for 45 second. Final angiography shows no evidence of stenosis, no significant residual. SHYAM flow was 3 throughout the procedure. Sheath closed with ExoSeal device. Plavix was loaded in the lab. TRANSINT:[id number] Voice Confirmation ID: [id number] DOCUMENT ID: [id number] ANGELITA FERGUSON MD at 1621 CC: [id number] DICTATION DATE: 05/28/19 141 DISTRICT BRANCH MANAGER: 05/28/19 1837 DIS IN 05/29/19 [facility] [address] [place] [address]
== END 2019-05-29 13:46 | disposition home or self-care (01) | DRG 248 ==
LOC: D.ER 05:28 → D.MS 06:18 → D.ER 10:57 → D.MS 05-29 13:46
PROVIDERS: Family Medicine; Internal Medicine Cardiovascular Disease; Internal Medicine Interventional Cardiology; ADMIT Internal Medicine Nephrology; ATTEND Internal Medicine Nephrology
PROC: B2151ZZ Fluoroscopy of Left Heart using Low Osmolar Contrast (ICD-10-PCS; 2019-05-28)
PROC: 4A023N7 Measurement of Cardiac Sampling and Pressure, Left Heart, Percutaneous Approach (ICD-10-PCS; 2019-05-28)
PROC: 02703DZ Dilation of Coronary Artery, One Artery with Intraluminal Device, Percutaneous Approach (ICD-10-PCS; principal; 2019-05-28 12:29)
PROC: B2111ZZ Fluoroscopy of Multiple Coronary Arteries using Low Osmolar Contrast (ICD-10-PCS; 2019-05-28 12:29)
DX: I11.0 Hypertensive heart disease with heart failure (principal); I21.4 Non-ST elevation (NSTEMI) myocardial infarction; I48.20 Chronic atrial fibrillation, unspecified; I50.33 Acute on chronic diastolic (congestive) heart failure; I25.10 Atherosclerotic heart disease of native coronary artery without angina pectoris; E05.90 Thyrotoxicosis, unspecified without thyrotoxic crisis or storm; R41.82 Altered mental status, unspecified